=== PATIENT | male | born 1990 | race Caucasian/White ===

== ENCOUNTER 2017-06-10 14:47 | Emergency (ER) | payer OTHER ==
[2017-06-10 15:45] LABS: ADD MAN DIFF? NO
[2017-06-10 15:49] LABS: BASO # 0.1 x10^3/uL (0.0-0.2); BASO % 1 % (0-3); EOS # 0.2 x10^3/uL (0.0-0.7); EOS % 2 % (0-3); HEMATOCRIT 43.2 % (39.0-53.0); LYMPH # 1.9 x10^3/uL (1.0-4.8); LYMPH % 17 % (24-48); MEAN CORPUSCULAR HEMOGLOBIN 31 pg (25-35); MEAN CORPUSCULAR HGB CONC 35 g/dL (31-37); MEAN CORPUSCULAR VOLUME 88 fL (79-100); MONO # 0.9 x10^3/uL (0.0-1.1); MONO % 8 % (0-9); NEUT # 8.2 x10^3uL (1.8-7.7); NEUT % 73 % (31-73); PLATELET COUNT 252 x10^3/uL (140-400); RED BLOOD COUNT 4.93 x10^6/uL (4.30-5.70); RED CELL DISTRIBUTION WIDTH 12.8 % (11.5-14.5); WHITE BLOOD COUNT 11.2 x10^3/uL (4.0-11.0)
[2017-06-10 15:56] LABS: FECAL OB PT POSITIVE (NEG); NEG OBC FOB NEG; POS OBC FOB POS
[2017-06-10 15:59] LABS: BILIRUBIN,URINE NEGATIVE (NEG); CLARITY,URINE CLEAR; COLOR,URINE YELLOW; GLUCOSE,URINE NEGATIVE (NEG); NITRITE,URINE NEGATIVE (NEG); PROTEIN,URINE NEGATIVE (NEG-TRACE); UROBILINOGEN,URINE 0.2 mg/dL (0.2 mg/dL)
[2017-06-10 16:07] LABS: BACTERIA,URINE 0 /HPF (0-FEW); RBC,URINE 0 /HPF (0-2); SQUAMOUS EPITHELIAL CELL,UR OCC /LPF; WBC,URINE 0 /HPF (0-4)
[2017-06-10 16:14] LABS: ANION GAP 10 (6-14); BLOOD UREA NITROGEN 20 mg/dL (8-26); BUN/CREATININE RATIO 20 (6-20); CALCIUM 9.1 mg/dL (8.5-10.1); CARBON DIOXIDE 27 mmol/L (21-32); CHLORIDE 103 mmol/L (98-107); GLUCOSE 98 mg/dL (70-99); POTASSIUM 3.8 mmol/L (3.5-5.1); SODIUM 140 mmol/L (136-145)
[2017-06-10 16:19] LABS: ALBUMIN 3.8 g/dL (3.4-5.0); ALBUMIN/GLOBULIN RATIO 1.1 (1.0-1.7); ALK PHOS 75 U/L (46-116); ALT (SGPT) 26 U/L (16-63); AST (SGOT) 19 U/L (15-37); LIPASE 114 U/L (73-393); TOTAL BILIRUBIN 0.4 mg/dL (0.2-1.0); TOTAL PROTEIN 7.2 g/dL (6.4-8.2)
[2017-06-10] MEDS: IV NORMAL SALINE 1000ML BAG 1,000 ML IV ×2 (16:40)
[2017-06-10] MEDS: ONDANSETRON PF 4 MG/2 ML VIAL. IV ×2 (16:41)
[2017-06-10] MEDS: LIDO:MAALOX:DONNATAL 1:1:1 15 ML SINGLE DOSE SWSW ×2 (16:42)
[2017-06-10] MEDS: FAMOTIDINE 20 MG/2 ML VIAL IVP ×2 (16:43)
[2017-06-10] MEDS ORDERED: CONTRAST GIVEN MC ×2 (17:45)
[2017-06-10] MEDS: IOHEXOL 300 MG/ML 100ML VIAL. IV ×2 (18:33)
== END 2017-06-10 19:40 | disposition home or self-care (01) ==
LOC: ER 14:47
DX: R10.12 Left upper quadrant pain (principal); K92.1 Melena; J45.909 Unspecified asthma, uncomplicated
CPT/HCPCS: 36415; 74177; 80053; 81001; 82274; 83690; 85025; 96361; 96374; 96375; 99285-25; J2405; J7030; Q9967; S0028

== ENCOUNTER 2018-07-02 19:47 | Emergency (ER) | payer SELFPAY ==
[~2018-07-02] VITALS: Ht 160 cm; Wt 63.5 kg
[~2018-07-02 19:47] MED LIST: OMEP40CA5 PO; ONDA4TAB10 SL
[2018-07-02 19:51] VITALS: BP 135/76
--- NOTE | 2018-07-02 20:06 | PHYS DOC ---
Past Medical History Past Medical History: Asthma (KRISHNA CLAYTON APRN) Past Surgical History: Tonsillectomy (KRISHNA CLAYTON APRN) Alcohol Use: None Drug Use: None (KRISHNA CLAYTON APRN) Adult General Chief Complaint Chief Complaint: INSECT BITE HPI HPI Patient is a 27 year old male who presents with insect bite to the left upper extremity that he noted today. Patient denies anything specifically biting him. Denies any anaphylactic reactions symptoms, denies any fever. (KRISHNA CLAYTON APRN) Review of Systems Review of Systems Constitutional: Denies fever or chills [] Eyes: Denies change in visual acuity, redness, or eye pain [] HENT: Denies nasal congestion or sore throat [] Respiratory: Denies cough or shortness of breath [] Cardiovascular: No additional information not addressed in HPI [] GI: Denies abdominal pain, nausea, vomiting, bloody stools or diarrhea [] : Denies dysuria or hematuria [] Musculoskeletal: Denies back pain or joint pain [] Integument: Insect bite to the left upper extremity Neurologic: Denies headache, focal weakness or sensory changes [] All other systems were reviewed and found to be within normal limits, except as documented in this note. (KRISHNA CLAYTON APRN) Current Medications Current Medications Current Medications Medications (Trade) Dose Ordered Sig/Marce Start Time Stop Time Status Last Admin Dose Admin Diphtheria/ Tetanus/Acell Pertussis (Boostrix) 0.5 ml ONCE ONCE 07/02/18 20:15 07/02/18 20:16 DC 07/02/18 20:31 0.5 ML (JENNIFER MARIA MD) Allergies Allergies Allergies Coded Allergies Type Severity Reaction Last Updated Verified No Known Drug Allergies 04/03/14 No (JENNIFER MARIA MD) Physical Exam Physical Exam Constitutional: Well developed, well nourished, no acute distress, non-toxic appearance. [] HENT: Normocephalic, atraumatic, bilateral external ears normal, oropharynx moist, no oral exudates, nose normal. [] Eyes: PERRLA, EOMI, conjunctiva normal, no discharge. [] Neck: Normal range of motion, no tenderness, supple, no stridor. [] Cardiovascular:Heart rate regular rhythm, no murmur [] Lungs & Thorax: Bilateral breath sounds clear to auscultation [] Abdomen: Bowel sounds normal, soft, no tenderness, no masses, no pulsatile masses. [] Skin: Left triceps region with an area of erythema approximately 3 x 2 cm consistent with an insect bite. The area is warm, tender to touch, no fluctuance. Back: No tenderness, no CVA tenderness. [] Extremities: No tenderness, no cyanosis, no clubbing, ROM intact, no edema. [] Neurologic: Alert and oriented X 3, normal motor function, normal sensory function, no focal deficits noted. [] Psychologic: Affect normal, judgement normal, mood normal. [] (KRISHNA CLAYTON APRN) Current Patient Data Vital Signs Vital Signs Date Time Temp Pulse Resp B/P (MAP) Pulse Ox O2 Delivery O2 Flow Rate FiO2 07/02/18 19:51 98.2 89 16 135/76 (95) 98 Room Air 98.2 (JENNIFER MARIA MD) EKG EKG [] (KRISHNA CLAYTON APRN) Radiology/Procedures Radiology/Procedures [] (KRISHNA CLAYTON APRN) Course & Med Decision Making Course & Med Decision Making Pertinent Labs and Imaging studies reviewed. (See chart for details) Patient has an insect bite to the left triceps, the area is not infected. Tetanus updated, discharged with triamcinolone cream and Benadryl. Follow-up with primary care doctor needed. (KRISHNA CLAYTON APRN) Course & Med Decision Making Staff Physician Addendum: I was working in the ER during the course of this patient's visit. I was available for consultation as needed, but I was not directly involved in the care of this patient. (JENNIFER MARIA MD) Dragon Disclaimer Dragon Disclaimer This electronic medical record was generated, in whole or in part, using a voice recognition dictation system. (KRISHNA CLAYTON APRN) Departure Departure Impression: Primary Impression: Insect bite of left upper extremity Disposition: 01 HOME, SELF-CARE Condition: STABLE Referrals: NO PCP (PCP) Follow-up in 1-2 weeks with your own doctor Patient Instructions: Insect Bite, [id number] Additional Instructions: You have an insect bite to the left upper extremity. The area is not infected. Use the prescribed cream or you can use [id number] hydrocortisone cream until the lesion is gone. Please take Benadryl/Zyrtec/Claritin as needed until the lesion is gone. Follow-up with your doctor as needed. Scripts Triamcinolone Acetonide (TRIAMCINOLONE ACETONIDE 0.1% OINT) 15 Gm Oint...g. 1 CAMERON TP BID for WOUND CARE, #1 TUBE Prov: KRISHNA CLAYTON APRN 07/02/18 Problem Qualifiers Primary Impression: Insect bite of left upper extremity Encounter type: initial encounter Qualified Codes: S40.862A - Insect bite ( nonvenomous) of left upper arm, initial encounter; W57.XXXA - Bitten or stung by nonvenomous insect and other nonvenomous arthropods, initial encounter KRISHNA CLAYTON APRN Jul 02, 2018 20:06 JENNIFER MARIA MD Jul 07, 2018 06:10
[2018-07-02] MEDS ORDERED: TRIA15OI TP (20:11)
[2018-07-02] MEDS ORDERED: DIPHTH,PERTUSS(ACELL),TET TOX 0.5 ML DISP.SYRIN. VAX IM ONE (20:15)
== END 2018-07-02 20:34 | disposition home or self-care (01) ==
LOC: ER 19:47
DX: S40.862A Insect bite (nonvenomous) of left upper arm, initial encounter (principal); J45.909 Unspecified asthma, uncomplicated; Z90.89 Acquired absence of other organs; W57.XXXA Bitten or stung by nonvenomous insect and other nonvenomous arthropods, initial encounter; Y93.89 Activity, other specified; Y92.89 Other specified places as the place of occurrence of the external cause; Y99.8 Other external cause status
CPT/HCPCS: 90471; 90715; 99283